=== PATIENT | female | born 1970 | race Caucasian/White ===

== ENCOUNTER 2018-02-19 22:29 | Emergency (ER) | payer OTHER ==
[2018-02-19] MEDS: LORazepam 1 MG TABLET PO (23:37)
== END 2018-02-20 | disposition home or self-care (01) ==
LOC: ER 02-20
DX: F41.9 Anxiety disorder, unspecified (principal); H93.12 Tinnitus, left ear; I10 Essential (primary) hypertension
CPT/HCPCS: 84484; 93005; 99285-25